=== PATIENT | female | born 1970 | race Caucasian/White ===

== ENCOUNTER 2018-11-25 00:53 | Emergency (ER) | payer SELFPAY ==
[2018-11-25 01:20] LABS: Pregnancy Test - Urine (BHCG) Negative (Negative); Pregu Control Background? CLEAR/WHITE (CLR/WHITE); Pregu Control Bar Appear? YES (CONTROL BAR)
[2018-11-25 01:24] LABS: Bacteria/HPF 4+ HPF (None Seen); Bilirubin 1+ (Negative); Blood, Urine 1+ (Negative); Clarity Turbid (Clear); Glucose, Urine (Dipstick) Normal (Negative); Leukocyte 75 Leu/uL (Negative); Nitrite Negative (Negative); Protein, Urine (Dipstick) 50 mg/dL (Neg-Trace); Urobilinogen 12 mg/dL (Less than 2)
[2018-11-25 01:24] LABS: Specific Gravity 1.032 (1.002-1.036)
[2018-11-25 01:24] LABS: #Eosinphils 0.1 thou/uL (0.0-0.7); #Lymphocytes 1.4 thou/uL (1.20-3.40); #Monocytes 0.4 thou/uL (0.11-0.59); #Neutrophils 7.1 thou/uL (1.40-6.50); %Basophils 0.3 % (0.0-1.0); %Eosinophils 1.3 % (0.0-10.0); %Lymphocytes 15.8 % (21.0-51.0); %Monocytes 4.7 % (0.0-10.0); Hemoglobin 14.8 g/dL (12.0-16.0); Mean Corpuscular HGB CONC 34.7 g/dL (32.0-36.0); Mean Corpuscular Hemoglobin 31.3 pg (27.0-31.0); Mean Corpuscular Volume 90.1 fL (78.0-98.0); Mean Platelet Volume 8.4 fL (7.4-10.4); Platelet Count 204 thou/uL (130-400); RBC Distribution Width 12.3 % (11.5-14.5); Red Blood Cell (RBC) Count 4.74 mill/uL (4.20-5.40); White Blood Cell (WBC) Count 9.1 thou/uL (4.8-10.8)
[2018-11-25 01:45] LABS: ALT (SGPT) 119 U/L (8-55); AST (SGOT) 214 U/L (5-34); Albumin 4.1 g/dL (3.5-5.0); Alkaline Phosphatase 113 U/L (40-150); Anion Gap 11 mmol/L (10-20); BUN (Urea Nitrogen) 16 mg/dL (7.0-18.7); Bilirubin, Total 1.2 mg/dL (0.2-1.2); Calc. Creatinine Clearance 0 mL/min (70-130); Calcium 9.1 mg/dL (7.8-10.44); Carbon Dioxide 27 mmol/L (22-29); Chloride 106 mmol/L (98-107); Estimated GFR-MDRD 75; Globulin 3.3 g/dL (2.4-3.5); Glucose 152 mg/dL (70-105); Lipase 40 U/L (8-78); Potassium 3.7 mmol/L (3.5-5.1); Protein, Total 7.4 g/dL (6.0-8.3); Sodium 140 mmol/L (136-145)
[2018-11-25] MEDS ORDERED: Ondansetron PF 4 MG/2 ML Vial ONE (02:32)
[2018-11-25] MEDS ORDERED: Morphine 4 MG/ML VIAL ONE (02:32)
--- NOTE | 2018-11-25 08:03 | ULT ---
RIGHT UPPER QUADRANT ULTRASOUND: INDICATION: Right upper quadrant pain with nausea and vomiting. COMPARISON: None. FINDINGS: Overlying bowel heavily limits image detail of the examination. The pancreas is largely obscured. The liver measures 20 cm in its greatest dimension and has a coarse echotexture and diffuse increased echogenicity suspicious for changes of fatty liver. There is a large shadowing gallstone within the gallbladder. There is mild gallbladder wall thickening. No definite pericholecystic fluid is evide nt. The tax technician does report a positive sonographic Frank's sign. The common bile duct is dilate d measuring 8.5 mm. There is a small suspected cyst seen within the right hepatic lobe measuring josefina roximately 1.6 cm. The right kidney measures 11 x 3.3 cm. No hydronephrosis is evident. IMPRESSION: 1. Cholelithiasis with gallbladder wall thickening and report of a positive sonographic Frank's sig n is suspicious for acute calculus cholecystitis. No pericholecystic fluid is evident. There is dil atation of the common bile duct. A distal CBD obstructive process such as a distal stone from choled ocholithiasis cannot be excluded. Would recommend consideration for an MRCP evaluation to evaluate f or distal common bile duct stone. In addition, a HIDA scan may be helpful. 2. Suspected right hepatic lobe cyst. POS: BH
== END 2018-11-25 04:12 | disposition left against medical advice (07) ==
LOC: ERS 00:53
DX: K80.10 Calculus of gallbladder with chronic cholecystitis without obstruction (principal); F17.210 Nicotine dependence, cigarettes, uncomplicated
CPT/HCPCS: 36415; 76705; 80053; 81003; 81015; 81025; 83690; 85025; 96361; 96374; 96375; J2270; J2405